=== PATIENT | female | born 1995 | race Caucasian/White ===

== ENCOUNTER 2023-07-19 17:07 | Emergency (ER) | payer OTHER, SELFPAY ==
[2023-07-19 17:08] VITALS: BP 109/85; PULSE 76; RESP 18; TEMP 36.3; O2SAT 100; BMI 21.7
--- NOTE | 2023-07-19 17:22 | EKG12_ITS ---
Test Reason : SYNCOPE Blood Pressure : / mmHG Vent. Rate : 078 BPM Atrial Rate : 078 BPM P-R Int : 130 ms QRS Dur : 096 ms QT Int : 382 ms P-R-T Axes : 062 012 019 degrees QTc Int : 435 ms Normal sinus rhythm Normal ECG Confirmed by MARÍA MENDOZA MD ([id number]), editor department [facility] ([id number]) on 07/22/2023 1:14:21 PM Referred By: Confirmed By:MARÍA MENDOZA MD
--- NOTE | 2023-07-19 17:25 | NURSING ---
NO OLD EKGS
--- NOTE | 2023-07-19 17:35 | EDS_ITS ---
HPI History of Present Illness Chief Complaint: Syncope Narrative Narrative: Patient presenting today for evaluation due to a syncopal episode that occurred on Tuesday. She reports that she was at a wedding and she was standing with a group of people when she suddenly got hot and dizzy and passed out. She reports that she was not drinking any alcohol and does not have a history of syncope. She reports that since then she has felt fatigued and intermittently feels like her heart is racing and will feel hot. Her last menstrual period was 3 weeks ago. She denies a PMH of any chronic health conditions. She denies any fever, chills, chest pain, shortness of breath, abdominal pain, nausea, and vomiting. PFSH PFSH Medical History no medical history Allergy/AdvReac Type Severity Reaction Status Date / Time amoxicillin Allergy Mild Rash Verified 07/19/23 17:08 Social History Smoking Status: Never smoker ROS ROS ED Constitutional Constitutional ED: Reports fatigue; Denies chills or fever(s) Cardiovascular Cardiovascular: Reports racing heartbeat; Denies chest pain or palpitations Respiratory/Chest Respiratory/Chest: Denies cough or dyspnea Gastrointestinal Gastrointestinal: Denies abdominal pain, nausea or vomiting Genitourinary Genitourinary ED: Denies dysuria, hematuria or urinary urgency Musculoskeletal Musculoskeletal: Denies arthralgias or myalgias Integumentary Denies rash Neurologic Neurologic: Denies confusion, dizziness or headache(s) EXAM Physical Exam Const Vital Signs: 07/19/23 17:08 07/19/23 17:25 07/19/23 18:18 Temperature 97.3 F L Temperature Source Temporal Pulse Rate 76 71 Respiratory Rate 18 16 Respiratory Effort Normal Respiratory Pattern Normal Blood Pressure 109/85 H 109/81 H Blood Pressure Mean 93 Pulse Ox 100 100 Oxygen Delivery Method Room Air Positive well nourished, well developed and no apparent distress General Appearance ED: well developed HEENT Reports normocephalic and head/scalp atraumatic Mouth ED: Yes moist mucous membranes normal Eyes PERRL and EOMs intact bilaterally Neck full ROM and supple Chest Wall inspection of chest normal Resp normal respiratory effort and clear to auscultation bilaterally Cardio regular rate and regular rhythm GI soft to palpation, non-tender, non-distended and no masses Back/Spine normal ROM and normal to inspection Extremity normal to inspection and full ROM Neuro oriented x3, CN's II-XII intact bilaterally, moves all extremities, no focal motor deficits and no sensory deficits noted Sensorium / Orientation: awake and alert Psych mental status grossly normal and thought process normal Skin no rashes or lesions noted and no wounds MDM MDM MDM Narrative Medical decision making narrative: Patient presenting due to syncopal episode that occurred on Tuesday. She was standing up at a wedding when she suddenly got hot and dizzy and passed out. She reports that since then, she has felt fatigued and will intermittently feel like her heart is racing and will feel hot. She is well-appearing and in no acute distress, vital signs are unremarkable. Lab remarkable. EKG is normal sinus rhythm. I suspect that her symptoms are due to vasovagal syncope, the cause of her fatigue is nonspecific. I have encouraged her to follow-up with the PCP and have given her referral for one. She has been given return instructions will be discharged home in stable condition. She is comfortable with plan. Lab Data Attestation: I reviewed the patient's lab results. Labs: Laboratory Results - last 24 hr 07/19/23 17:23 WBC 8.1 RBC 4.80 Hgb 13.4 Hct 40.4 MCV 84.2 MCH 27.9 MCHC 33.2 RDW Std Deviation 38.5 RDW Coeff of Hang 12.7 Plt Count 230 MPV 11.3 Immature Gran % (Auto) 0.200 Neut % (Auto) 64.9 Lymph % (Auto) 27.0 Sebastian % (Auto) 5.8 Eos % (Auto) 1.7 Baso % (Auto) 0.4 Absolute Neuts (auto) 5.3 Absolute Lymphs (auto) 2.19 Nucleated RBC % 0 Sodium 137 Potassium 3.5 Chloride 105 Carbon Dioxide 25.0 Anion Gap 7 BUN 11 Creatinine 0.75 Estim Creat Clear Calc 91.55 Est GFR (MDRD) Af Amer 116 Est GFR (MDRD) Non-Af 96 BUN/Creatinine Ratio 14.6 Glucose 94 Calcium 8.5 EKG Initial EKG: Comments: 78 bpm, normal sinus rhythm, no ST elevation, reviewed and interpreted by attending ED physician. Discharge Plan Triage Chief Complaint: Syncope ED Midlevel Provider: Randi Rodríguez ED Provider: Figueroa,Chevy Dx/Rx/DC Orders Clinical Impression: Vasovagal syncope Instructions: Understanding Vasovagal Syncope Primary Care Provider: Care Physician,No Primary Referrals: Kaci Schulz MD [Med Staff - Housekeeping Laundry Worker] - 5-7 Days NOT,DEFINED [Non-Staff] - Activity Restrictions/Additional Instructions: Follow-up with your PCP and return for any worsening of symptoms. Disposition Disposition: Home, Self Care Discharge Date/Time: 07/19/23 18:24
[2023-07-19 17:47] LABS: Absolute Lymphocyte Count 2.19 X10^3/uL (0.83-4.51); Absolute Neutrophil Count 5.3 X10^3/uL (2.0-7.7); Basophil# 0.03 X10^3/uL; Basophil% 0.4 % (0-1); Eosinophil# 0.14 X10^3/uL; Eosinophils% 1.7 % (0-5); Hematocrit 40.4 % (37-47); Hemoglobin 13.4 g/dL (12.0-15.0); Lymphocyte # 2.19 X10^3/ul (0.83-4.51); Mean Corp Hgb Conc 33.2 g/dL (32-36); Mean Corpuscular Hgb 27.9 pg (27.0-32.0); Mean Corpuscular Volume 84.2 fL (81-99); Mean Platelet Vol. 11.3 fl (6.2-12.0); Monocyte# 0.47 X10^3/uL; Monocyte% 5.8 % (0-10); NRBC Flagged by Analyzer 0 % (0-5); Neutrophil # 5.27 X10^3/uL (2.7-7.7); Neutrophil % 64.9 % (47-70); Platelet Count 230 K/mm3 (150-450); RBC Distribution Width CV 12.7 % (11.6-14.6); RBC Distribution Width SD 38.5 fl (35.1-43.9); White Blood Count 8.1 K/mm3 (4.4-11.0)
[2023-07-19 17:59] LABS: Anion Gap 7 (5-15); BUN 11 mg/dL (7-18); BUN/Creat Ratio 14.6 RATIO (10-20); Calcium,Total 8.5 mg/dL (8.5-10.1); Chloride 105 mmol/L (98-107); Creatinine, Serum 0.75 mg/dL (0.55-1.02); EST Glomerular Filtration Rate 96 mL/min (>60); Est Glom Filt Rate - Afr Amer 116 mL/min (>60); Estimated Creatinine Clearance 91.55 ml/min; Glucose 94 mg/dL (74-106); Potassium 3.5 mmol/L (3.5-5.1); Sodium Level 137 mmol/L (136-145)
[2023-07-19 18:18] VITALS: BP 109/81; PULSE 71; RESP 16; O2SAT 100
== END 2023-07-19 18:24 | disposition home or self-care (01) ==
PROVIDERS: Physician Assistant; Emergency Provider Emergency Medicine; Visit Provider Emergency Medicine
DX: R55 Syncope and collapse (principal)
CPT/HCPCS: 80048; 85025; 93005; 99283; A4216